=== PATIENT | female | born 1965 | race Caucasian/White ===

== ENCOUNTER → 2017-08-15 | Day surgery (SDC) | payer OTHER ==
[~2017-08-15] VITALS: Ht 157.5 cm; Wt 65.2 kg
[~2017-08-15] MED LIST: *MEPERIDINE 25 MG INJ VIAL PERIprocedural Use ONLY ONE; *morphine SULFATE 8 MG/ML PERIprocedure ONLY ONE; ACETAMINOPHEN 1000 MG/100 ML 100 ML IV ONE; APREPITANT 40 MG CAP ONE; BUPIVACAINE HCL PF 0.25% 30 ML VIAL ONE; BUPIVACAINE LIPOSOME PF 1.3% 20 ML VIAL INFIL ONE; BUPIVACAINE LIPOSOME PF 1.3% 20 ML VIAL ONE; CHLORHEXIDINE GLUCONATE 2 % 1 PACK (2 CLOTHS) TOPICAL PRN; DEXAMETHASONE SOD PHOS 4 MG/ML VIAL IV ONE; DO NOT ADM ANY ANTICOAGULANT DRUGS PRN; GELFOAM SIZE 100 ONE; GENTAMICIN SULFATE 80 MG/2 ML VIAL ONE; GLYCOPYRROLATE 1 MG/5 ML SYRINGE IV PUSH ONE; LACTATED RINGER'S 1000 ML INJ 1,000 ML IV SCH; LACTATED RINGER'S 1000 ML IV PRN; LEVO100T5 PO; LEVO25TA4 PO; LIDOCAINE HCL 1% 50 ML VIAL ONE; LIDOCAINE HCL 1% PF 5 ML SYRINGE OTHER ONE; METOPROLOL TARTRATE 25 MG TAB PO PRN; MIDAZOLAM HCL 2 MG/2 ML VIAL IV ONE; NEOSTIGMINE 3 MG/3 ML SYR IV ONE; NORMOSOL R INJ 1,000 ML IV ONE; ONDANSETRON HCL 4 MG/2 ML VIAL IV PUSH ONE; PHENYLEPH/NS 1000 MCG/10 ML SYR IV ONE; PHENYLEPHRINE HCL 10 MG/ML VIAL IV ONE; POVIDONE IODINE 5% (ANTISEPSIS KIT) 4 APPLICATIONS EACH NARE PRN; PROPOFOL 200 MG/20 ML AMP IV ONE; ROCURONIUM INJ 50 MG/5 ML SYRINGE IV PUSH ONE; SODIUM CHLOR 0.9% 250 ML INJ 250 ML IV ONE; SODIUM CHLORID 0.9% 500 ML IV PRN; THROMBIN (TOPICAL) 5,000 UNIT VIAL ONE; TRAM50TA PO; VANCOMYCIN HCL 1000 MG VIAL ONE; ceFAZolin 1,000 MG/NS 100 ML IV SCH; ePHEDrine/NS 25 MG/5 ML SYR IV ONE; traMADol HCL 50 MG TAB PO PRN
--- NOTE | 2017-08-15 11:45 | PD.OP ---
Operative Report Date of Surgery: Aug 15, 2017 Preoperative Diagnosis: (1) Herniated nucleus pulposus, lumbar (2) Lumbar radiculopathy Left L5-S1 herniated nucleus pulposus Left S1 radiculopathy Postoperative Diagnosis: (1) Herniated nucleus pulposus, lumbar (2) Lumbar radiculopathy Left L5-S1 herniated nucleus pulposus Left S1 radiculopathy Procedure: Left L5 laminotomy, discectomy, resection sequestered herniated nucleus pulposus -microtechnique Anesthesia: Gen. Surgeon: Billy Hunter Supervisor Logging(s): Dara Galvin Operation and Findings: Findings: Large sequestered left L5-S1 herniated nucleus pulposus with severe left S1 nerve compression. Procedure in detail: The patient was brought into the operating room and general endotracheal anesthesia induced without difficulty. Coon catheter was placed. Knee-high sequential compression devices were placed. Lines were established by Anesthesia The patient was placed in prone position on the concentric Tj table with the side bolsters and all extremities appropriately padded Appropriate timeout procedure was performed with all personal present and in agreement The lumbar region was shaved with clippers and sterilely prepped and draped. 1% Xylocaine with epinephrine was used for local infiltration over the incision site which was made just to the left of midline at the L5-S1 level. The incision was carried sharply down to the lumbodorsal fascia which was incised just adjacent to the spinous processes. Zaragoza elevator was used for subperiosteal elevation of paraspinous musculature and fascia away from the lamina and spinous process The deep self-retaining retractor was placed. The appropriate level was verified with intraoperative C-arm. The microscope was moved into place and used for the remainder of the procedure including the closure. The TPS drill with the 5 mm bone bur followed by the 3 mm Kerrison rongeur was used to remove the inferior aspect of the left L5 lamina with a small amount of the medial facet sufficient to gain access to the lateral recess without significant nerve root or thecal sac retraction. The ligamentum flavum was elevated away from the thecal sac and resected with the Kerrison rongeur which was also used to further remove ligamentum along the lateral recess. The exiting nerve root was traced down to the medial aspect of the inferior pedicle and traced back to the exit from the thecal sac. The thecal sac and exiting nerve root were then retracted gently medially revealing the underlying disc and annulus. The patient was noted to have a prominent sequestered herniated nucleus pulposus which was significantly impinging on the overlying exiting nerve root and thecal sac. The large sequestered fragments underlying the thecal sac and exiting S1 nerve root were carefully freed up with the micro-nerve hook, and the discectomy performed with the micro-pituitary biopsy forceps and the straight and angled curettes. Any loose pieces of disc material in the intervertebral disc space were carefully removed. The neural structures appeared well decompressed at the end of the procedure. Bleeding was carefully controlled with bone wax for the bone bleeding and bipolar forceps. There is no significant bleeding time of closure. No cerebrospinal fluid leakage was encountered. The closure was performed with 0 Vicryl interrupted for the deep and superficial fascia, with 3-0 Vicryl interrupted for the subcutaneous closure, and 4-0 Vicryl running for the subcuticular closure. The dressing of sterile Mastisol, Steri-Strips, and Primapore dressing was applied. The patient was taken to recovery room in stable condition. All counts were correct at the end of the case. No specimen was sent to pathology. Estimated blood loss was 10 cc . Billy Hunter MD Aug 15, 2017 11:45
[2017-08-15 15:00] VITALS: BP 102/53; PULSE 80; RESP 16; TEMP 97.5; O2SAT 100
--- NOTE | 2017-08-15 15:03 | RADRPT ---
EXAM DATE/TIME: 08/15/2017 09:13 [facility] COMPARISON: No previous studies available for comparison. INDICATIONS : Lumbar spine L5-S1 laminectomy. OR. MEDICAL HISTORY : None. SURGICAL HISTORY : None. ENCOUNTER: Initial ACUITY: 1 day PAIN SCORE: Non-responsive. LOCATION: Lumbar L5-S1 FINDINGS: A single lateral view of the lumbar spine was performed. The L5 posterior element has been localized. CONCLUSION: The L5 posterior element has been localized. Ernesto Carranza MD on August 15, 2017 at 15:02 Board Certified Radiologist. This report was verified electronically.
--- NOTE | 2017-08-15 17:56 | EKG ---
Date Performed: 08/15/2017 Time Performed: 07:24:16 PTAGE: 51 years EKG: Sinus rhythm NORMAL ECG NO PREVIOUS TRACING DOCTOR: Luis Buck Interpretating Date/Time 08/15/2017 17:55:13
== END | disposition home or self-care (01) ==
LOC: HSDC 06:29
PROVIDERS: ATTEND Neurological Surgery
DX: M51.16 Intervertebral disc disorders with radiculopathy, lumbar region (principal); Z01.810 Encounter for preprocedural cardiovascular examination
CPT/HCPCS: 00630; 63030; 72020; 76000; 93005; C9290; J0131; J0690; J1100; J1580; J2175; J2250; J2270; J2370; J2405; J2710; J3010; J3370; J7050; J7120; J8501